=== PATIENT | female | born 1970 | race African-American/Black ===

== ENCOUNTER 2021-10-23 15:05 | Emergency (ER) | payer OTHER ==
[~2021-10-23] VITALS: Ht 149.9 cm; Wt 63.0 kg
[2021-10-23] MEDS ORDERED: TETANUS, DIPHTHERIA, PERTUSSIS VAC/PF 0.5ML (>10YR OLD) IM ONE (15:30)
[2021-10-23] MEDS ORDERED: LIDOCAINE HCL/PF 1% 10 MG/ML 5ML VIAL INFIL ONE (15:30)
[2021-10-23] MEDS ORDERED: BACITRACIN ZINC OINT UDPKT TOP ONE (15:30)
[2021-10-23 16:20] VITALS: BP 126/75
== END 2021-10-23 16:20 | disposition home or self-care (01) ==
LOC: ER 15:05
DX: S61.011A Laceration without foreign body of right thumb without damage to nail, initial encounter (principal); I10 Essential (primary) hypertension; Z88.6 Allergy status to analgesic agent; W26.8XXA Contact with other sharp object(s), not elsewhere classified, initial encounter; Y93.E9 Activity, other interior property and clothing maintenance; Y92.010 Kitchen of single-family (private) house as the place of occurrence of the external cause
CPT/HCPCS: 12001; 99282; J3490

== ENCOUNTER 2021-10-25 10:10 | Emergency (ER) | payer OTHER ==
[~2021-10-25] VITALS: Ht 157.5 cm; Wt 60.0 kg
[2021-10-25 10:16] VITALS: BP 172/90
== END 2021-10-25 11:43 | disposition home or self-care (01) ==
LOC: ER 10:24
DX: Z48.00 Encounter for change or removal of nonsurgical wound dressing (principal)
CPT/HCPCS: 99281

== ENCOUNTER 2021-11-07 09:44 | Emergency (ER) | payer OTHER ==
[~2021-11-07] VITALS: Ht 149.9 cm; Wt 69.0 kg
[2021-11-07 10:32] VITALS: BP 167/99
== END 2021-11-07 14:01 | disposition home or self-care (01) ==
LOC: ER 09:50
DX: S61.210D Laceration without foreign body of right index finger without damage to nail, subsequent encounter (principal); X58.XXXD Exposure to other specified factors, subsequent encounter; I10 Essential (primary) hypertension; Z88.0 Allergy status to penicillin
CPT/HCPCS: 99281